=== PATIENT | male | born 1950 | race Caucasian/White ===

== ENCOUNTER 2016-10-10 19:45 | Emergency (ER) | payer OTHER ==
[~2016-10-10] VITALS: Ht 172.7 cm; Wt 74.8 kg
[2016-10-10 20:20] VITALS: BP_SYST 121
[2016-10-10 23:22] VITALS: BP_SYST 120
== END 2016-10-10 23:22 | disposition home or self-care (01) ==
LOC: SED 19:45
DX: R04.0 Epistaxis (principal); F17.210 Nicotine dependence, cigarettes, uncomplicated; Z71.6 Tobacco abuse counseling
CPT/HCPCS: 99283